=== PATIENT | male | born 1950 | race Hispanic/Latino ===

== ENCOUNTER 2018-02-03 18:14 | Emergency (ER) | payer MEDICARE ==
[~2018-02-03] VITALS: Ht 170.2 cm; Wt 106.8 kg
[~2018-02-03 18:14] MED LIST: ADVIL200 MG PO; AMLODIPINE BESYL5 MG PO; ASPIRIN EC81 MG PO; ATORVASTATIN CA40 MG PO; BENADRYL 50MG C50 MG OR; BENADRYL1 CRE EX; BENADRYL25 M1 OR; ENALAPRIL10 MG OR; GENTAMICIN15 ML/BTL OP; GLIPIZIDE5 M2 OR; GLIPIZIDE5 MG OR; GLIPIZIDE5 MG PO; LISINOPRIL10 MG PO; LISINOPRIL20 M1 PO; LORTAB 7.5 OR; MEDROL4 M1 OR; METFORMIN HCL1000 MG PO; METFORMIN1000 MG PO; METFORMIN500 M1 OR; METFORMIN500 MG PO; MULTIVITAMI9 PO; NO MEDS; PLAVIX75 MG PO; SILVADENE1 %; SILVADENE1 % TOP; ULTRAM50 M1 PO; VITAMIN C1000 MG PO; ZOFRAN ODT8 MG PO
[2018-02-03] MEDS ORDERED: TAMSULOSIN HCL0.4 MG PO (18:22)
[2018-02-03] MEDS ORDERED: ASPIRIN81 MG PO (18:22)
[2018-02-03] MEDS ORDERED: CARVEDILOL25 MG PO (18:23)
[2018-02-03] MEDS ORDERED: ISOSORB MONO30 MG PO (18:24)
[2018-02-03] MEDS ORDERED: HYDRALAZINE50 MG PO (18:24)
[2018-02-03] MEDS ORDERED: GABAPENTIN100 MG PO (18:25)
[2018-02-03] MEDS ORDERED: LOSARTAN POT50 MG PO (18:27)
[2018-02-03] MEDS ORDERED: CILOSTAZOL100 MG PO (18:28)
[2018-02-03] MEDS ORDERED: CLINDAMYCIN HC150 MG PO (18:29)
[2018-02-03 18:56] LABS: HEMATOCRIT 31.5 % (39.0-50.0); HEMOGLOBIN 10.6 g/dl (14.0-18.0); IMMATURE GRANULOCYTES 0.4 % (0.0-5.0); MEAN CELL VOLUME 84.9 fL CALC (80.0-100.0); MEAN CORPUSCULAR HGB 28.6 pG CALC (26.0-32.0); MEAN CORPUSCULAR HGB CONC 33.7 g/L CALC (32.0-36.0); NEUT# 6.12 thou/uL (1.82-7.42); RED BLOOD COUNT 3.71 mill/uL (4.70-6.10); RED CELL DISTRI WIDTH 14.2 % (11.5-15.5)
[2018-02-03 19:14] LABS: ALKALINE PHOSPHATASE 67 u/l (38-126); ANION GAP 14 (6-22 (CALC)); BILIRUBIN, TOTAL 0.4 mg/dL (0.0-1.4); BUN 18 mg/dL (8-23); BUN/CREATININE RATIO 17 (12-20 (CALC)); CARBON DIOXIDE 24 mmol/l (22-30); CHLORIDE 104 mmol/l (95-108); CPK 119 u/l (52-200); CREATININE 1.1 mg/dL (0.7-1.3); GFR > 60 ML/MIN (>=60 (CALC)); GFR FOR AFR.AMER. > 60 ML/MIN (>=60 (CALC)); POTASSIUM 4.5 mmol/l (3.5-5.1); SGOT/AST 25 u/l (19-48); SGPT/ALT 30 u/l (11-66); SODIUM 138 mmol/l (137-146)
[2018-02-03 19:23] LABS: MYOGLOBIN 78 ng/mL (0 - 121)
[2018-02-03] MEDS ORDERED: TORADOL PO (19:38)
[2018-02-03] MEDS ORDERED: BACTRIM DS1 TAB PO (19:38)
[2018-02-03 19:57] VITALS: BP 167/81
== END 2018-02-03 19:58 | disposition home or self-care (01) ==
LOC: ED 18:14
PROVIDERS: Family Medicine
DX: R22.1 Localized swelling, mass and lump, neck (principal); T36.8X5A Adverse effect of other systemic antibiotics, initial encounter; T88.1XXA Other complications following immunization, not elsewhere classified, initial encounter; M79.1 Myalgia; Y92.009 Unspecified place in unspecified non-institutional (private) residence as the place of occurrence of the external cause

== ENCOUNTER → 2018-09-13 | Outpatient (REF) | payer MEDICARE ==
[~2018-09-13] MED LIST changes: +ASPIRIN81 MG PO; +BACTRIM DS1 TAB PO; +CARVEDILOL25 MG PO; +CILOSTAZOL100 MG PO; +CLINDAMYCIN HC150 MG PO; +GABAPENTIN100 MG PO; +HYDRALAZINE50 MG PO; +ISOSORB MONO30 MG PO; +LOSARTAN POT50 MG PO; +TAMSULOSIN HCL0.4 MG PO; +TORADOL PO
== END | disposition home or self-care (01) ==
LOC: MRI 08-31 08:30
PROVIDERS: ATTEND Internal Medicine
DX: M48.061 Spinal stenosis, lumbar region without neurogenic claudication (principal)

== ENCOUNTER 2019-01-22 07:33 | Inpatient (IN) | payer MEDICARE, MEDICAID ==
[~2019-01-22] VITALS: Ht 170.2 cm; Wt 102.2 kg
[2019-01-22] MEDS ORDERED: MAXZIDE-2537.5 MG/TA PO (08:05)
[2019-01-22] MEDS ORDERED: TAMSULOSIN HCL0.4 MG PO (08:06)
[2019-01-22 08:46] LABS: HEMATOCRIT 36.2 % (39.0-50.0); HEMOGLOBIN 12.1 g/dl (14.0-18.0); IMMATURE GRANULOCYTES 0.6 % (0.0-5.0); MEAN CELL VOLUME 85.8 fL CALC (80.0-100.0); MEAN CORPUSCULAR HGB 28.7 pG CALC (26.0-32.0); MEAN CORPUSCULAR HGB CONC 33.4 g/L CALC (32.0-36.0); NEUT# 12.11 thou/uL (1.82-7.42); RED BLOOD COUNT 4.22 mill/uL (4.70-6.10); RED CELL DISTRI WIDTH 13.5 % (11.5-15.5)
[2019-01-22 09:01] LABS: ALKALINE PHOSPHATASE 80 u/l (38-126); ANION GAP 16 (6-22 (CALC)); BUN 17 mg/dL (8-23); BUN/CREATININE RATIO 14 (12-20 (CALC)); CARBON DIOXIDE 25 mmol/l (22-30); CHLORIDE 106 mmol/l (95-108); CREATININE 1.3 mg/dL (0.7-1.3); GFR 55 ML/MIN (>=60 (CALC)); GFR FOR AFR.AMER. > 60 ML/MIN (>=60 (CALC)); LIPASE 134 u/l (23-300); POTASSIUM 4.5 mmol/l (3.5-5.1); SGOT/AST 20 u/l (19-48); SODIUM 142 mmol/l (137-146); TOTAL PROTEIN 7.7 g/dL (6.3-8.2)
[2019-01-22 09:02] LABS: ALBUMIN 4.9 g/dL (3.2-5.0); BILIRUBIN, TOTAL 0.6 mg/dL (0.0-1.4)
[2019-01-22 10:46] LABS: URINE BILIRUBIN - DIPSTICK NEGATIVE (NEGATIVE); URINE BLOOD DIPSTICK NEGATIVE (NEGATIVE); URINE COLOR YELLOW; URINE GLUCOSE - DIPSTICK NEGATIVE (NEGATIVE); URINE KETONE TRACE mg/dL (NEGATIVE); URINE LEUK ESTERASE NEGATIVE (NEGATIVE); URINE NITRITE - DIPSTICK NEGATIVE (Negative); URINE PH 5.5 (4.5-8.0); URINE PROTEIN - DIPSTICK 100 mg/dL (NEG-TRACE); URINE SPECIFIC GRAVITY 1.025; URINE UROBILINOGEN - DIPSTICK 0.2 E.U./dL (0.2)
[2019-01-22 10:50] LABS: URINE RBC 0-2 RBC/hpf (0-5); URINE WBC 0-2 WBC/hpf (0-5)
[2019-01-22 11:47] VITALS: BP 140/59
[2019-01-22 15:52] VITALS: BP 119/66
[2019-01-22 20:22] VITALS: BP 104/57
[2019-01-22 21:55] VITALS: BP 101/54
[2019-01-23 00:54] VITALS: BP 107/52
[2019-01-23 05:04] LABS: IMMATURE GRANULOCYTES 0.4 % (0.0-5.0); MEAN CELL VOLUME 86.7 fL CALC (80.0-100.0); MEAN CORPUSCULAR HGB 28.8 pG CALC (26.0-32.0); MEAN CORPUSCULAR HGB CONC 33.2 g/L CALC (32.0-36.0); NEUT# 10.72 thou/uL (1.82-7.42); RED BLOOD COUNT 3.3 mill/uL (4.70-6.10); RED CELL DISTRI WIDTH 13.6 % (11.5-15.5)
[2019-01-23 05:16] LABS: HEMATOCRIT 28.6 % (39.0-50.0); HEMOGLOBIN 9.5 g/dl (14.0-18.0)
[2019-01-23 05:25] LABS: BILIRUBIN, TOTAL 0.6 mg/dL (0.0-1.4); MAGNESIUM 1.4 mg/dL (1.6-2.3); POTASSIUM 4.6 mmol/l (3.5-5.1)
[2019-01-23 05:35] LABS: ALBUMIN 3.7 g/dL (3.2-5.0); CREATININE 2.9 mg/dL (0.7-1.3)
[2019-01-23 08:16] VITALS: BP 122/68
[2019-01-23 11:05] VITALS: BP 133/65
[2019-01-23 16:55] VITALS: BP 140/65
[2019-01-23 19:34] VITALS: BP 170/68
[2019-01-23 23:10] VITALS: BP 157/75
[2019-01-24] VITALS (7 sets, daily range): BP systolic 140–196; BP diastolic 61–95
[2019-01-24 05:03] LABS: HEMATOCRIT 27.5 % (39.0-50.0); HEMOGLOBIN 9.1 g/dl (14.0-18.0); IMMATURE GRANULOCYTES 0.4 % (0.0-5.0); MEAN CELL VOLUME 86.2 fL CALC (80.0-100.0); MEAN CORPUSCULAR HGB 28.5 pG CALC (26.0-32.0); MEAN CORPUSCULAR HGB CONC 33.1 g/L CALC (32.0-36.0); NEUT# 6.16 thou/uL (1.82-7.42); RED BLOOD COUNT 3.19 mill/uL (4.70-6.10); RED CELL DISTRI WIDTH 13.5 % (11.5-15.5)
[2019-01-24 05:28] LABS: ALBUMIN 3.4 g/dL (3.2-5.0); BILIRUBIN, TOTAL 0.4 mg/dL (0.0-1.4); CREATININE 2.8 mg/dL (0.7-1.3); MAGNESIUM 1.6 mg/dL (1.6-2.3); POTASSIUM 4.4 mmol/l (3.5-5.1); TOTAL PROTEIN 5.8 g/dL (6.3-8.2)
[2019-01-25] VITALS (13 sets, daily range): BP systolic 150–199; BP diastolic 74–92
[2019-01-25 03:45] LABS: HEMOGLOBIN 9.2 g/dl (14.0-18.0); IMMATURE GRANULOCYTES 0.6 % (0.0-5.0); MEAN CELL VOLUME 86.4 fL CALC (80.0-100.0); MEAN CORPUSCULAR HGB 28.4 pG CALC (26.0-32.0); MEAN CORPUSCULAR HGB CONC 32.9 g/L CALC (32.0-36.0); NEUT# 4.62 thou/uL (1.82-7.42); RED BLOOD COUNT 3.24 mill/uL (4.70-6.10); RED CELL DISTRI WIDTH 13.5 % (11.5-15.5)
[2019-01-25 04:05] LABS: ALBUMIN 3.4 g/dL (3.2-5.0); BILIRUBIN, TOTAL 0.3 mg/dL (0.0-1.4); CREATININE 2.1 mg/dL (0.7-1.3); MAGNESIUM 1.6 mg/dL (1.6-2.3); POTASSIUM 4.1 mmol/l (3.5-5.1); TOTAL PROTEIN 5.9 g/dL (6.3-8.2)
[2019-01-25 04:10] LABS: ALBUMIN 3.5 g/dL (3.2-5.0); CREATININE 2.1 mg/dL (0.7-1.3); POTASSIUM 4.2 mmol/l (3.5-5.1)
[2019-01-26] VITALS (8 sets, daily range): BP systolic 134–174; BP diastolic 66–82
[2019-01-26 05:25] LABS: HEMATOCRIT 30.4 % (39.0-50.0); HEMOGLOBIN 9.9 g/dl (14.0-18.0); IMMATURE GRANULOCYTES 0.4 % (0.0-5.0); MEAN CELL VOLUME 87.1 fL CALC (80.0-100.0); MEAN CORPUSCULAR HGB 28.4 pG CALC (26.0-32.0); MEAN CORPUSCULAR HGB CONC 32.6 g/L CALC (32.0-36.0); NEUT# 4.83 thou/uL (1.82-7.42); RED BLOOD COUNT 3.49 mill/uL (4.70-6.10); RED CELL DISTRI WIDTH 13.6 % (11.5-15.5)
[2019-01-26 05:48] LABS: ALBUMIN 3.7 g/dL (3.2-5.0); BILIRUBIN, TOTAL 0.4 mg/dL (0.0-1.4); CREATININE 1.9 mg/dL (0.7-1.3); MAGNESIUM 1.6 mg/dL (1.6-2.3); POTASSIUM 4.5 mmol/l (3.5-5.1); TOTAL PROTEIN 6.4 g/dL (6.3-8.2)
[2019-01-26 09:17] LABS: CHOLESTEROL HDL RATIO 4.9 (<4.4 (CALC))
[2019-01-27 00:02] VITALS: BP 162/72
[2019-01-27 04:23] VITALS: BP 158/80
[2019-01-27 05:01] LABS: HEMATOCRIT 26.5 % (39.0-50.0); HEMOGLOBIN 8.7 g/dl (14.0-18.0); IMMATURE GRANULOCYTES 0.5 % (0.0-5.0); MEAN CELL VOLUME 87.2 fL CALC (80.0-100.0); MEAN CORPUSCULAR HGB 28.6 pG CALC (26.0-32.0); MEAN CORPUSCULAR HGB CONC 32.8 g/L CALC (32.0-36.0); NEUT# 3.51 thou/uL (1.82-7.42); RED BLOOD COUNT 3.04 mill/uL (4.70-6.10); RED CELL DISTRI WIDTH 13.5 % (11.5-15.5)
[2019-01-27 05:12] LABS: CREATININE 1.6 mg/dL (0.7-1.3); MAGNESIUM 1.6 mg/dL (1.6-2.3); POTASSIUM 4.2 mmol/l (3.5-5.1)
[2019-01-27 08:00] VITALS: BP 140/80
[2019-01-27 10:40] VITALS: BP 158/83
[2019-01-27] MEDS ORDERED: AMLODIPINE BESYL5 MG PO (11:58)
== END 2019-01-27 14:05 | disposition home or self-care (01) | DRG 418 ==
LOC: ED 07:33 → ED-I 09:44 → ED 10:24 → MS2 10:25
PROVIDERS: Family Medicine; Internal Medicine Nephrology; Nurse Practitioner Family; ADMIT Internal Medicine Nephrology; ATTEND Internal Medicine Nephrology
PROC: 3E0234Z Introduction of Serum, Toxoid and Vaccine into Muscle, Percutaneous Approach (ICD-10-PCS; 2019-01-24)
PROC: 0FT44ZZ Resection of Gallbladder, Percutaneous Endoscopic Approach (ICD-10-PCS; principal; 2019-01-25)
DX: K80.00 Calculus of gallbladder with acute cholecystitis without obstruction (principal); N17.9 Acute kidney failure, unspecified; E87.1 Hypo-osmolality and hyponatremia; I25.10 Atherosclerotic heart disease of native coronary artery without angina pectoris; E78.5 Hyperlipidemia, unspecified; E11.22 Type 2 diabetes mellitus with diabetic chronic kidney disease; I12.9 Hypertensive chronic kidney disease with stage 1 through stage 4 chronic kidney disease, or unspecified chronic kidney disease; N18.3 Chronic kidney disease, stage 3 (moderate); E11.40 Type 2 diabetes mellitus with diabetic neuropathy, unspecified; E86.9 Volume depletion, unspecified; D64.9 Anemia, unspecified; E83.42 Hypomagnesemia; N40.1 Benign prostatic hyperplasia with lower urinary tract symptoms; R33.8 Other retention of urine; M48.061 Spinal stenosis, lumbar region without neurogenic claudication; Z86.73 Personal history of transient ischemic attack (TIA), and cerebral infarction without residual deficits; Z79.84 Long term (current) use of oral hypoglycemic drugs; Z23 Encounter for immunization; Z79.02 Long term (current) use of antithrombotics/antiplatelets; Z95.5 Presence of coronary angioplasty implant and graft; Z95.1 Presence of aortocoronary bypass graft; Z87.891 Personal history of nicotine dependence
CPT/HCPCS: J0131; J2710

== ENCOUNTER 2019-03-21 07:04 | Day surgery (SDC) | payer MEDICARE, MEDICAID ==
[~2019-03-21] VITALS: Ht 170.2 cm; Wt 104.3 kg
[~2019-03-21 07:04] MED LIST changes: +ASPIRIN/ENTERIC81 MG PO; -ASPIRIN81 MG PO; +B COMPLE2 PO; +CLOPIDOGREL75 MG PO; -GABAPENTIN100 MG PO; +GABAPENTIN300 M2 PO; +HUMALOG100 UNIT/M SC; +LANTUS100 UNIT/M SC; +LOSARTAN POTASS50 MG PO; +MAXZIDE-2537.5 MG/TA PO; +MUPIROCIN EX; +NITROGLYCER0.2 MG/H1 TD; +NITROGLYCERIN0.4 MG SL; +PROSCAR5 MG PO; +VITAMIN B-121000 MCG PO; +ZESTRIL10 M1 PO
[2019-03-21 09:23] VITALS: BP 109/63
== END 2019-03-21 09:40 | disposition home or self-care (01) ==
LOC: ENDO 07:04 → ORM 08:45 → ENDO 09:40
PROVIDERS: ATTEND Surgery
PROC: 0DB98ZX Excision of Duodenum, Via Natural or Artificial Opening Endoscopic, Diagnostic (ICD-10-PCS; principal; 2019-03-21)
PROC: 0DB68ZX Excision of Stomach, Via Natural or Artificial Opening Endoscopic, Diagnostic (ICD-10-PCS; 2019-03-21)
PROC: 0DB48ZX Excision of Esophagogastric Junction, Via Natural or Artificial Opening Endoscopic, Diagnostic (ICD-10-PCS; 2019-03-21)
PROC: 0DJD8ZZ Inspection of Lower Intestinal Tract, Via Natural or Artificial Opening Endoscopic (ICD-10-PCS; 2019-03-21)
DX: D64.9 Anemia, unspecified (principal); K29.80 Duodenitis without bleeding; K29.60 Other gastritis without bleeding; K44.9 Diaphragmatic hernia without obstruction or gangrene; K21.0 Gastro-esophageal reflux disease with esophagitis; K64.8 Other hemorrhoids; I10 Essential (primary) hypertension; E11.9 Type 2 diabetes mellitus without complications

== ENCOUNTER 2019-05-03 01:58 | Emergency (ER) | payer MEDICARE, MEDICAID ==
[~2019-05-03] VITALS: Ht 170.2 cm; Wt 104.5 kg
[2019-05-03] MEDS ORDERED: PERCOCET 5/325M1 TAB PO (04:30)
[2019-05-03] MEDS ORDERED: ORPHENADRINE C100 M1 PO (04:30)
[2019-05-03 04:40] VITALS: BP 172/72
== END 2019-05-03 04:40 | disposition home or self-care (01) ==
LOC: ED 01:58
DX: S76.911A Strain of unspecified muscles, fascia and tendons at thigh level, right thigh, initial encounter (principal); E11.9 Type 2 diabetes mellitus without complications; Z79.4 Long term (current) use of insulin; X58.XXXA Exposure to other specified factors, initial encounter; Z98.890 Other specified postprocedural states; M79.651 Pain in right thigh

== ENCOUNTER 2019-05-10 08:56 | Emergency (ER) | payer MEDICARE, MEDICAID ==
[~2019-05-10] VITALS: Ht 170.2 cm; Wt 110.0 kg
[~2019-05-10 08:56] MED LIST changes: +ORPHENADRINE C100 M1 PO; +PERCOCET 5/325M1 TAB PO
[2019-05-10 10:57] LABS: HEMATOCRIT 30.5 % (39.0-50.0); HEMOGLOBIN 10.1 g/dl (14.0-18.0); IMMATURE GRANULOCYTES 0.5 % (0.0-5.0); MEAN CELL VOLUME 86.4 fL CALC (80.0-100.0); MEAN CORPUSCULAR HGB 28.6 pG CALC (26.0-32.0); MEAN CORPUSCULAR HGB CONC 33.1 g/L CALC (32.0-36.0); NEUT# 5.57 thou/uL (1.82-7.42); RED BLOOD COUNT 3.53 mill/uL (4.70-6.10); RED CELL DISTRI WIDTH 14.1 % (11.5-15.5)
[2019-05-10 11:27] LABS: ALBUMIN 4.1 g/dL (3.2-5.0); BUN 15 mg/dL (8-23); BUN/CREATININE RATIO 11 (12-20 (CALC)); CARBON DIOXIDE 25 mmol/l (22-30); CHLORIDE 101 mmol/l (95-108); CREATININE 1.4 mg/dL (0.7-1.3); GFR 51 ML/MIN (>=60 (CALC)); GFR FOR AFR.AMER. > 60 ML/MIN (>=60 (CALC)); SGOT/AST 30 u/l (19-48); SODIUM 136 mmol/l (137-146)
[2019-05-10 11:32] LABS: ALKALINE PHOSPHATASE 116 u/l (38-126); ANION GAP 15 (6-22 (CALC)); BILIRUBIN, TOTAL 0.9 mg/dL (0.0-1.4); POTASSIUM 5.2 mmol/l (3.5-5.1)
[2019-05-10] MEDS ORDERED: LOPID600 MG PO (12:05)
[2019-05-10 13:44] LABS: URINE BILIRUBIN - DIPSTICK NEGATIVE (NEGATIVE); URINE BLOOD DIPSTICK TRACE-INTACT (NEGATIVE); URINE COLOR YELLOW; URINE GLUCOSE - DIPSTICK NEGATIVE (NEGATIVE); URINE KETONE NEGATIVE (NEGATIVE); URINE LEUK ESTERASE NEGATIVE (NEGATIVE); URINE NITRITE - DIPSTICK NEGATIVE (Negative); URINE PROTEIN - DIPSTICK 100 mg/dL (NEG-TRACE); URINE UROBILINOGEN - DIPSTICK 0.2 E.U./dL (0.2)
[2019-05-10 13:50] LABS: URINE RBC 0-2 RBC/hpf (0-5); URINE WBC 0-2 WBC/hpf (0-5)
[2019-05-10] MEDS ORDERED: PYRIDIUM200 MG PO (14:13)
[2019-05-10 14:30] VITALS: BP 145/72
== END 2019-05-10 14:39 | disposition home or self-care (01) ==
LOC: ED 08:56
PROVIDERS: Family Medicine
DX: R30.0 Dysuria (principal); E11.9 Type 2 diabetes mellitus without complications; Z79.4 Long term (current) use of insulin

== ENCOUNTER 2020-01-24 19:48 | Emergency (ER) | payer MEDICARE, MEDICAID ==
[~2020-01-24] VITALS: Ht 170.2 cm; Wt 107.0 kg
[~2020-01-24 19:48] MED LIST changes: +LOPID600 MG PO; +PYRIDIUM200 MG PO
[2020-01-24 22:37] VITALS: BP 180/88
--- NOTE | 2020-01-27 14:51 | NUR ---
Notified patients of patients positive Covid results. states patient very weak, "unable to keep anything down", unable to come to phone and has a fever. Advised to have patient return to the ED for further evaluation. Asked that patient wear a mask upon entry of building. states she will have daughter bring patient to ED [facility]. ED staff notified.
== END 2020-01-24 22:37 | disposition home or self-care (01) ==
LOC: ED 19:48
DX: U07.1 COVID-19 (principal); J06.9 Acute upper respiratory infection, unspecified; I10 Essential (primary) hypertension; E11.9 Type 2 diabetes mellitus without complications; Z79.4 Long term (current) use of insulin

== ENCOUNTER 2020-01-27 16:19 | Inpatient (IN) | payer MEDICARE, MEDICAID ==
[~2020-01-27] VITALS: Ht 170.2 cm; Wt 99.8 kg
--- NOTE | 2020-01-27 16:35 | NUR ---
Pt to room # 16 via W/C for bedside triage
--- NOTE | 2020-01-27 17:00 | NUR ---
PT IS COVID 19 POSITIVE AND STATES HAVING NO PAIN AT THIS TIME BUT HAS AN INTERM PROD COUGH AND HAS BODY ACHES, DECREASE IN APPETITE, INCREASED WEAKNESS. LUNGS DIMINISHED LOWER LOBES. TEMP 99.8 F. WILL CONTINUE TO MONITOR.
--- NOTE | 2020-01-27 17:30 | NUR ---
TREATMENTS COMPLETED. PT NOTIFIED OF WAIT AND PLAN OF CARE. CALL LIGHT WITHIN REACH
[2020-01-27 17:48] LABS: HEMATOCRIT 31.8 % (39.0-50.0); HEMOGLOBIN 10.9 g/dl (14.0-18.0); IMMATURE GRANULOCYTES 0.5 % (0.0-5.0); MEAN CELL VOLUME 87.6 fL CALC (80.0-100.0); MEAN CORPUSCULAR HGB CONC 34.3 g/dL CAL (32.0-36.0); NEUT# 3.14 thou/uL (1.82-7.42); RED BLOOD COUNT 3.63 mill/uL (4.70-6.10)
[2020-01-27 18:09] LABS: ALBUMIN 4.1 g/dL (3.2-5.0); C-REACTIVE PROTEIN 5.8 mg/dL (0-0.9); CREATININE 1.8 mg/dL (0.7-1.3); D-DIMER 0.34 mg/L (0.19-0.60); TOTAL PROTEIN 6.7 g/dL (6.3-8.2)
[2020-01-27 18:10] LABS: BILIRUBIN, TOTAL 0.5 mg/dL (0.0-1.4); POTASSIUM 4.1 mmol/l (3.5-5.1)
[2020-01-27 18:13] LABS: PROTHROMBIN TIME 9.7 SECONDS (9.0-12.5)
--- NOTE | 2020-01-27 18:30 | NUR ---
FLUIDS AND ANTIBIOTICS FLOWING IN PATENT IV. PT DENIES ANY PAINS. CALL LIGHT WITHIN REACH
[2020-01-27] MEDS ORDERED: [UNRECOGNIZED DRUG - OTHER] (19:41)
[2020-01-27] MEDS ORDERED: TAMSULOSIN HCL0.4 MG PO (19:41)
--- NOTE | 2020-01-27 19:45 | NUR ---
PT NOTIFIED OF PENDING ADMISSION AND WAIT TIME. CALL LIGHT WITHIN REACH
--- NOTE | 2020-01-27 20:20 | NUR ---
GAVE REPORT TO BEENA
--- NOTE | 2020-01-27 20:30 | NUR ---
PT TRANSPORTED TO ICU STABLE AND IN NO DISTRESS BY STRETCHER. PT CARE ASSUMED TO BEENA Admission Note Report Given to: Transported by: Wheelchair X Stretcher Transported with: X Nurse Transporter X Patent IV O2 X Education Intern Location: X ICU MS2
--- NOTE | 2020-01-27 20:45 | NUR ---
69 yr old male admitted to icu5 per stretcher from er. transferred self to bed. bed weight obtained. no resp diff. air sampling and monitoring shows sinus rhythm hr 86. #20 lac. ns bolus conts. history obtained per pt & er record. fall & air/contact precautions initiated.
--- NOTE | 2020-01-27 20:45 | NUR ---
pt said he & his were tested @ the [facility] 2 days ago. air scrubber in room.
[2020-01-27 22:00] VITALS: BP 168/58
--- NOTE | 2020-01-27 22:00 | NUR ---
watching tv. no c/o voiced. no distress.
[2020-01-27 22:15] VITALS: BP 189/79
[2020-01-27 22:30] VITALS: BP 192/79
[2020-01-28] VITALS (10 sets, daily range): BP systolic 114–170; BP diastolic 64–94
--- NOTE | 2020-01-28 00:01 | NUR ---
eyes closed. no distress. equipment monitor phototypesetting shows sinus rhythm hr 80.
--- NOTE | 2020-01-28 02:00 | NUR ---
resting quietly. resps even & unlabored. nad.
--- NOTE | 2020-01-28 03:30 | NUR ---
blood drawn & sent to lab.
[2020-01-28 04:17] LABS: HEMATOCRIT 28.8 % (39.0-50.0); HEMOGLOBIN 9.8 g/dl (14.0-18.0); IMMATURE GRANULOCYTES 0.3 % (0.0-5.0); MEAN CELL VOLUME 87.3 fL CALC (80.0-100.0); MEAN CORPUSCULAR HGB 29.7 pG CALC (26.0-32.0); NEUT# 3.03 thou/uL (1.82-7.42); RED BLOOD COUNT 3.3 mill/uL (4.70-6.10); RED CELL DISTRI WIDTH 12.9 % (11.5-15.5)
[2020-01-28 04:38] LABS: BILIRUBIN, TOTAL 0.3 mg/dL (0.0-1.4); C-REACTIVE PROTEIN 5.7 mg/dL (0-0.9); CREATININE 1.5 mg/dL (0.7-1.3); POTASSIUM 4.1 mmol/l (3.5-5.1); TOTAL PROTEIN 5.6 g/dL (6.3-8.2)
[2020-01-28 04:43] LABS: ALBUMIN 3.2 g/dL (3.2-5.0)
[2020-01-28 05:35] LABS: URINE BILIRUBIN - DIPSTICK NEGATIVE (NEGATIVE); URINE BLOOD DIPSTICK MODERATE (NEGATIVE); URINE CLARITY CLEAR; URINE COLOR YELLOW; URINE GLUCOSE - DIPSTICK 250 mg/dL (NEGATIVE); URINE KETONE NEGATIVE (NEGATIVE); URINE NITRITE - DIPSTICK NEGATIVE (Negative); URINE PROTEIN - DIPSTICK >=300 mg/dL (NEG-TRACE); URINE UROBILINOGEN - DIPSTICK 0.2 E.U./dL (0.2)
[2020-01-28 05:49] LABS: URINE LEUK ESTERASE NEGATIVE (Negative)
[2020-01-28 05:50] LABS: URINE BACTERIA FEW hpf; URINE EPITHELIAL CELLS FEW EPI/hpf (0-FEW)
--- NOTE | 2020-01-28 07:00 | NUR ---
REPORT RECEIVED FROM ZIYAD HARGROVE. PT RESTING IN BED SUPINE WITH EYES CLOSED AND NO SIGNS OF DISTRESS. RESPIRATIONS EVEN AND UNLABORED ON ROOM AIR. AWAKENS SPONTANEOUSLY. ALERT AND ORIENTED. DENIES PAIN. VSS. IV SITE APPEARS HEALTHY AND FLUSHES. REMAINS ON AIRBORNE/CONTACT PRECAUTIONS FOR POSITIVE COVID RESULTS. PLAN OF CARE REVIEWED. PT ENCOURAGED TO VERBALIZE CONCERNS. STATES UNDERSTANDING. SAFETY MEASURES IN PLACE. CALL LIGHT WITHIN REACH.
--- NOTE | 2020-01-28 08:30 | NUR ---
PT DISCONNECTED FROM ATTACHMENTS AFTER BREAKFAST TEMPORARILY FOR AMBULATION AND CARE; PT PERFORMED ORAL CARE AND HYGIENE INDEPENDENTLY.
--- NOTE | 2020-01-28 12:00 | NUR ---
PT RESTING IN BED SEMI FOWLERS; ALERT AND ORIENTED. NO CHANGES REPORTED. SR ON CARDIAC MONTIOR WITH PACS; HR IN THE 70'S. IV SITE APPEARS HEALTHY AND FLUSHES. NO REQUESTS OR CONCERNS AT THIS TIME.
--- NOTE | 2020-01-28 16:00 | NUR ---
PT C/O SOME BURNING DURING URINATION; DISCUSSED RESULTS OF UA WHICH DOES NOT REPORT UTI. PT IS SEEING DR. GARCIA; HAS SCHEDULED APPOINTMENT TOMORROW AT 1045; OFFICE NOTIFIED THAT HE IS HOSPITALIZED AT THIS TIME. VOIDING CLEAR YELLOW URINE IN ADEQUATE AMOUNTS. WILL CONTINUE TO MONITOR.
--- NOTE | 2020-01-28 19:45 | NUR ---
awake. denies resp distress. quality assurance monitor final shows sinus rhythm pacs ivcd hr 74. #20 lac saline lock. po fluids taken well. voids per urinal. spoke to pt about prone position but refuses @ present. fall & air/contact precautions cont.
--- NOTE | 2020-01-28 22:00 | NUR ---
eyes closed. no distress. ekg monitor tech shows sinus rhythm hr 78.
[2020-01-29 00:01] VITALS: BP 145/57
--- NOTE | 2020-01-29 00:01 | NUR ---
eyes closed. no resp diff. manager monitoring shows sinus rhythm pacs ivcd hr 72.
[2020-01-29 02:00] VITALS: BP 133/37
--- NOTE | 2020-01-29 02:00 | NUR ---
resting quietly. resps even & unlabored. no apparent distress.
--- NOTE | 2020-01-29 04:00 | NUR ---
eyes closed. no resp diff. conveyor monitor shows sinus rhythm pacs ivcd hr 75.
[2020-01-29 08:00] VITALS: BP 163/71
--- NOTE | 2020-01-29 08:00 | NUR ---
BREAKFAST TRAY DELIVERED TO PT. PT REQUEST TO BE UNHOOKED SO HE CAN "WASH HIS FACE & PUT WATER IN HIS MOUTH".
--- NOTE | 2020-01-29 08:08 | NUR ---
DR MORILLO @BEDSIDE, ASSSESSING PT, DISCUSSING TEST RESULTS & POC.
--- NOTE | 2020-01-29 09:09 | NUR ---
PT C/O EMESIS W/BREAKFAST. PT STATES HE "CANT EAT OUR TRINIDADIAN FOOD, HIS STOMACH ISNT USED TO IT"
--- NOTE | 2020-01-29 09:19 | NUR ---
PT REQUEST CHICKEN SOUP FOR LUNCH. DEITARY AWARE.
--- NOTE | 2020-01-29 11:20 | NUR ---
LUNCH TRAY PLACED ON PTS BEDSIDE TABLE. PT REQUEST NEW PITCHER OF ICE WATER. DISCUSSED HAVING A BM.
--- NOTE | 2020-01-29 12:36 | NUR ---
DR STEWART @BEDSIDE FOR CONSULT
--- NOTE | 2020-01-29 13:04 | NUR ---
PT C/O NAUSEA. MD NOTIFIED. RBVTO FOR ZOFRAN; ORDER FAXED TO PHARMACY.
[2020-01-29 16:00] VITALS: BP 153/70
--- NOTE | 2020-01-29 16:07 | NUR ---
PT DENIES N/V. STATES HE IS FEELING BETTER. BREATHING EVEN/UNLABORED. PT LOZADA; WALKS AROUND ROOM. NO S/S OF DISTRES.
--- NOTE | 2020-01-29 17:47 | NUR ---
PT SITTING ON SIDE OF BED, WITH DINNER TRAY. NO COMPLAINTS/NEEDS AT THIS TIME. WILL CONTINUE TO MONITOR.
[2020-01-29 21:27] VITALS: BP 154/75
--- NOTE | 2020-01-29 22:15 | NUR ---
PT IN BED WITH EYES OPEN AND ABLE TO VERBALIZE NEEDS. ALERT AND ORIENTED AND ABLE TO MAKE NEEDS KNOWN. MEDICATIONS GIVEN AND TOLERATED WELL. PT WAS MEDICATED FOR NAUSEA WITH ZOFRAN AND WAS EFFECTIVE. BLOOD SUGAR AT HS 365 AND INSULIN GIVEN PRESCRIBED. BEDTIME SNACK WAS GIVEN TO PT. CONTINUES ON lEVOFLOXACIN ABT IV WITH NO ADVERSE SIDE EFFECTS. CALL LIGHT IS WITHIN REACH. WILL CONTINUE TO OBSERVE.
--- NOTE | 2020-01-30 00:45 | NUR ---
PT IN BED WITH EYES CLOSED AND EASILY AROUSED. NO S/S OF DISTRESS NOTED. RESPIRATION EVEN AND NON LABORED. VITALS STABLE. CALL LIGHT IS WITHIN REACH AND BED IN LOWEST POSITION. WILL CONTINUE TO OBSERVE. .
--- NOTE | 2020-01-30 03:43 | NUR ---
PT IN BED WITH EYES CLOSED. NO S/S OF DISTRESS. EASILY AROUSED. RESPIRATON ARE EVEN AND NON LABORED. CALL LIGHT WITHIN REACH AND BED IN LOWEST POSITION. WILL CONTINUE TO OBSERVE.
[2020-01-30 04:48] VITALS: BP 151/71
[2020-01-30 04:59] LABS: BASO% 0 % (0-3); EOS% 0 % (0-8); HEMATOCRIT 28.4 % (39.0-50.0); HEMOGLOBIN 9.7 g/dl (14.0-18.0); IMMATURE GRANULOCYTES 0.6 % (0.0-5.0); LYMPH% 7 % (15-41); MEAN CELL VOLUME 85.8 fL CALC (80.0-100.0); MEAN CORPUSCULAR HGB 29.3 pG CALC (26.0-32.0); MEAN CORPUSCULAR HGB CONC 34.2 g/dL CAL (32.0-36.0); MONO% 5 % (2-13); NEUT% 87 % (42-76); RED BLOOD COUNT 3.31 mill/uL (4.70-6.10); RED CELL DISTRI WIDTH 12.7 % (11.5-15.5)
[2020-01-30 05:04] LABS: PLATELET COUNT 139 thou/uL (130-400)
[2020-01-30 05:36] LABS: ALBUMIN 3.3 g/dL (3.2-5.0); BILIRUBIN, TOTAL 0.4 mg/dL (0.0-1.4); C-REACTIVE PROTEIN 4.6 mg/dL (0-0.9); CREATININE 1.6 mg/dL (0.7-1.3); POTASSIUM 4.3 mmol/l (3.5-5.1); TOTAL PROTEIN 5.6 g/dL (6.3-8.2)
--- NOTE | 2020-01-30 06:08 | NUR ---
PT IN BED WITH EYES OPEN AND ABLE TO VERBALIZE NEEDS. STATES HE FEELS SO MUCH BETTER AFTER HE HAS RECEIVED THE ZOFRAN. CONTINUES ON ABT IV THERAPY WITH NO ADVERSE SIDE EFFECTS. AFEBRILE. 20G TO LAC INTACT AND APPEARS TO BE A HEALTHY SITE. CONTINENT OF B/B AND USES URINAL. WILL CONTINUE TO OBSERVE. CALL LIGHT IS WITHIN REACH AND BED IN LOWEST POSITION.
[2020-01-30 08:08] VITALS: BP 121/75
[2020-01-30 08:31] VITALS: BP 161/81
--- NOTE | 2020-01-30 08:31 | NUR ---
PT SITTING IN BED. A&O X3. NO DISTRESS NOTED. PT REPORTS TO BE FEELING NAUSEOUS THIS MORNING. NO OTHER NEEDS AT THIS TIME. ASSESSMENT COMPLETED. DISCUSSED POC. CALL LIGHT IN REACH. CONTINUE TO MONITOR.
--- NOTE | 2020-01-30 12:55 | NUR ---
PT SITTING IN BED. NO DISTRESS NOTED. CALL LIGHT IN REACH. CONTINUE TO MONITOR.
--- NOTE | 2020-01-30 15:26 | NUR ---
PROCRIT CONSULT PATIENT IS CURRENTLY ON BAG 07/21 OF VENOFER 200MG IV MONITOR HGB FOR IMPROVEMENT WE WILL GIVE 1 DOSE OF RETACRIT 4000 UNITS TODAY AND RECHECK HGB AFTER FINAL VENOFER. JOÃO CARLISLE PHARMD
[2020-01-30 15:30] VITALS: BP 133/72
--- NOTE | 2020-01-30 17:40 | NUR ---
PT SITTING IN BED. NO DISTRESS OR NEEDS AT THIS TIME. CALL LIGHT IN REACH. CONTINUE TO MONITOR.
--- NOTE | 2020-01-30 20:50 | NUR ---
PT IS ALERT AND ORIENTED X4. ON RA, SATS 95%, NO SOB NOTED, DOES HAVE A PRODUCTIVE COUGH. BP 140'S SYSTOLIC. LAC 20 G IV INTACT, IV ANTIBIOTIC NOW INFUSING. POC FOR TONIGHT DISCUSSED, PATIENT UNDERSTANDS AND AGREES. PT REQUESTS ICED WATER, PROVIDED. REQUESTS RECLINER FOR HIM TO SIT IN THE MORNING, PROVIDED. DENIES PAIN. REPSOTIONS SELF, USES URINAL AT BEDSIDE. CALL LIGHT WITHIN REACH. PT WAS ABLE TO SAFELY SWALLOW HIS BEDTIME MEDS.
[2020-01-30 21:00] VITALS: BP 141/70
--- NOTE | 2020-01-30 22:30 | NUR ---
PATIENT'S IV ANTIBIOTIC SONE INFUSING, IV FLUSHED AND WORKS PROPERLY, SALINE LOCKED NOW. PT OFFERED SNACK/DRINK, PT REQUESTS DIET GINI SATINDER, PROVIDED. NO ACUTE DISTRES SSHOWN. CALL LIGHT WITHIN REACH.
[2020-01-31] VITALS (8 sets, daily range): BP systolic 131–174; BP diastolic 59–80
[2020-01-31 06:04] LABS: ALBUMIN 3.1 g/dL (3.2-5.0); CREATININE 1.6 mg/dL (0.7-1.3); POTASSIUM 3.7 mmol/l (3.5-5.1)
--- NOTE | 2020-01-31 06:15 | NUR ---
ICE WATER PROVIDED PER REQUEST. NO ACUTE DISTRESS SHOWN. CLAL LIGHT WITHIN REACH.
--- NOTE | 2020-01-31 06:40 | NUR ---
RECVD REPORT FROM LEN WHEELER @START OF SHIFT.
--- NOTE | 2020-01-31 08:10 | NUR ---
PT C/O NAUSEA, ATE MINIMAL BREAKFAST. MEDICATED FOR NAUSEA. DENIES PAIN. DENIES SOB. NO OTHER NEEDS/CONCERNS AT THIS TIME.
--- NOTE | 2020-01-31 08:58 | NUR ---
PT C/O OUR FOOD MAKING HIM NAUSEOUS. PT REQUEST FRUIT SALAD FOR LUNCH. CAFE AWARE. PT REQUEST PEACHES & ORANGE JUICE FOR BREAKFAST. BREATHING EVEN/UNLABORED, UPPER LUNGS CLEAR, MID/LOWER LUNGS DIMINISHED.
--- NOTE | 2020-01-31 09:54 | NUR ---
PT ASSISTED UP TO TOILET FOR SMALL FORMED BROWN BM. PT C/O DIZZINESS, PLACED ON MONITORS. HR 61, O2 92% BP 138/59. PT PLACED ON 2L NC PRECAUTIONARY. PT REQUEST TO BE IN RECLINER. WANTS TO GO TO [facility] FOR SHOWER. CALLBELL W/IN REACH. WILL CONTINUE TO MONITOR.
--- NOTE | 2020-01-31 10:16 | NUR ---
PT STATES HE FEELS LIKE HE NEEDS TO MAKE MORE "POOP", REQUEST MEDICATION.
--- NOTE | 2020-01-31 11:16 | NUR ---
PT ESCORTED BACK TO BED AFTER A MODEARTE FORMED BROWN . PT STATES HIS BELLY WAS "BUBBLING". PT STATES DIZZINESS IS LESS NOW.
--- NOTE | 2020-01-31 12:15 | NUR ---
PT LAYING IN BED, EATING FRUIT FOR LUNCH. DENIES NAUSEA. PT REMAINS ON MONITORS FOR MILD DIZZINESS. VSS.
--- NOTE | 2020-01-31 15:38 | NUR ---
PT SLEEPING IN BED, BASEBALL ON TV. NO S/S OF DISTRESS. WILL CONTINUE TO MONITOR. CALLBELL W/IN REACH.
--- NOTE | 2020-01-31 17:22 | NUR ---
PT LAYING IN BED, WATCHING BASEBALL ON TV. NO S/S OF DISTRESS. WILL CONTINUE TO MONITOR.
--- NOTE | 2020-01-31 19:20 | NUR ---
awakens easily. denies resp diff. admits to "don't like the food." encouraged pt to be in prone position & out of bed frequently. pt verbalizes understanding. fall & air/contact precautions cont.
[2020-02-01] VITALS (7 sets, daily range): BP systolic 114–153; BP diastolic 58–74
--- NOTE | 2020-02-01 00:01 | NUR ---
eyes closed. is NOT in prone position. no resp distress.
--- NOTE | 2020-02-01 04:00 | NUR ---
eyes closed. lying on rt side. NOT in prone position. no apparent distress.
--- NOTE | 2020-02-01 04:30 | NUR ---
blood drawn & sent to lab.
[2020-02-01 05:20] LABS: BASO% 0 % (0-3); EOS% 0 % (0-8); HEMATOCRIT 30.4 % (39.0-50.0); HEMOGLOBIN 10.3 g/dl (14.0-18.0); LYMPH% 5 % (15-41); MEAN CELL VOLUME 86.4 fL CALC (80.0-100.0); MEAN CORPUSCULAR HGB 29.3 pG CALC (26.0-32.0); MEAN CORPUSCULAR HGB CONC 33.9 g/dL CAL (32.0-36.0); MONO% 4 % (2-13); NEUT# 9.77 thou/uL (1.82-7.42); NEUT% 90 % (42-76); RED BLOOD COUNT 3.52 mill/uL (4.70-6.10); RED CELL DISTRI WIDTH 13.2 % (11.5-15.5)
[2020-02-01 05:24] LABS: PLATELET COUNT 223 thou/uL (130-400)
[2020-02-01 05:44] LABS: BILIRUBIN, TOTAL 0.4 mg/dL (0.0-1.4); CREATININE 1.8 mg/dL (0.7-1.3); TOTAL PROTEIN 5.8 g/dL (6.3-8.2)
--- NOTE | 2020-02-01 05:53 | NUR ---
eyes closed. lying on rt side.
--- NOTE | 2020-02-01 06:45 | NUR ---
RECIEVED REPORT FROM ZIYAD HARGROVE. ASSUMED PT CARE.
--- NOTE | 2020-02-01 10:00 | NUR ---
DR. TOLBERT AT BEDSIDE FOR ASSESSMENT AND TO DISCUSS PLAN OF CARE.
--- NOTE | 2020-02-01 11:05 | NUR ---
PT TRANSFERRED TO [place] ROOM 290 IMMEDIATELY WENT IN TO THE SHOWER.
--- NOTE | 2020-02-01 16:45 | NUR ---
PT IS RELAXING IN BED , NO DISTRESS NOTED. INFORMED PT OF THE FAMILY TRYING TO REACH HIM. HE STATED" I WAS ASLEEP" CONTINUE TO OBSERVE AND MONITOR.
[2020-02-02 04:00] VITALS: BP 159/73
[2020-02-02 04:53] LABS: ALBUMIN 2.7 g/dL (3.2-5.0); CREATININE 2.2 mg/dL (0.7-1.3)
[2020-02-02 08:30] VITALS: BP 142/71
--- NOTE | 2020-02-02 08:30 | NUR ---
ASSESSMENT IS COMPLETED: IV SITE IS FREE FROM REDNESS OR EDEMA. HR IS REG,PULSES ARE STRONG X4, ABD IS SOFT WITH ACTIVE BS. BREATH SOUNDS ARE CLER, BILATERLLY. NO C/O SOB. CONTINUE TO OSEBRVE AND MONITOR.
--- NOTE | 2020-02-02 11:15 | NUR ---
PT WAS SITTING IN THE SHOWER. AND THEN BECAME WEAK. LOWERING HIS HEAD. ENCOURAGED TO SIT UP AND FOCUS ON STANDING UP TO GET BACK TO BED. BECAME A LITTLE WEAKER , MONOMER RECOVERY OPERATOR AND MYSELF PLACED PT IN WC AND ASSISTED BACK TO BED. AND STARTED IV FLUIDS. PT IS RESTING IN BED .
--- NOTE | 2020-02-02 11:30 | NUR ---
DR TOLBERT IN TO VISIT WITH PT/ WILL REHYDRATE PT. CONTINUE TO OBSERVE AND MONITOR.
--- NOTE | 2020-02-02 12:45 | NUR ---
PT IS RELAXING IN BED WITH NO DISTRSS NOTED.IV SITE IS FREE FROM REDNESS OR EDEMA
[2020-02-02 16:03] VITALS: BP 125/61
--- NOTE | 2020-02-02 16:45 | NUR ---
PT IS RESTING IN BED WITH NO DISTRESS NOTED. IV SITE IS FREE FROM REDNESS OR EDEMA.
[2020-02-02 19:15] VITALS: BP 149/64
[2020-02-03 04:00] VITALS: BP 144/61
[2020-02-03 05:16] LABS: HEMOGLOBIN 10.1 g/dl (14.0-18.0); IMMATURE GRANULOCYTES 3.9 % (0.0-5.0); MEAN CORPUSCULAR HGB 29.6 pG CALC (26.0-32.0); MEAN CORPUSCULAR HGB CONC 33.7 g/dL CAL (32.0-36.0); NEUT# 9.53 thou/uL (1.82-7.42); RED BLOOD COUNT 3.41 mill/uL (4.70-6.10); RED CELL DISTRI WIDTH 13.7 % (11.5-15.5)
[2020-02-03 05:46] LABS: CREATININE 2.1 mg/dL (0.7-1.3); POTASSIUM 4.1 mmol/l (3.5-5.1)
--- NOTE | 2020-02-03 07:15 | NUR ---
REPORT RECEIVED FROM LEN SOLOMON.
[2020-02-03 07:55] VITALS: BP 157/67
--- NOTE | 2020-02-03 07:55 | NUR ---
PT RESTING AT BEDSIDE,A&O X3;VS OBTAINED AND ASSESSMENT COMPLETED;PT DENIES ANY CURRENT PAIN OR DISCOMFORTS,PAIN SCALE AND REPORTING EDUCATED;PT EXPRESSES EAGERNESS TO GO HOME, REASSURED PATIENT;RESPIRATIONS SHALLOW ON RA, UPON ASSESSMENT PT O2 SATS 77% WHILE ON RA.WRITTER APPLIED OXYGEN @ 2L VIA NC AND ENCOURAGED PT TO RE-POSITION TO PRONE POSITION IN BED;O2 SATS REMAINED IN 80'S WHILE ON 2L VIA NC;INCREASED OXYGEN TO 4L AND O2 SATS INCREASED TO 92%;EDUCATED PT ON THE BENEFITS OF REMAINS PRONE TO INCREASE OXYGEN;NON-PRODUCTIVE COUGH NOTED;ABDOMEN SOFT ON PALPATION AND ACTIVE IN ALL 4 QUADRANTS;STRONG PEDAL PULSES;SKIN INTACT;#20G TO RAC INFUSING NS @ 100ML/HR,SITE APPEARS HEALTHY;ACCUCHECK 210, PT COVERED WITH SLIDING SCALE NOVOLOG PER ORDER;PT REMAINS IN AIR/CONTACT PRECAUTIONS AT THIS TIME DUE TO COVID19 DX;PT DENIES ANY ADDITIONAL NEEDS AND IS ENCOURAGED TO CALL FOR ASSISTANCE IF NEEDED;CALL LIGHT IN REACH;WILL CONTINUE TO MONITOR
--- NOTE | 2020-02-03 08:15 | NUR ---
AND CARLA ANRP NOTIFIED OF INCREASE IN OXYGEN TO 4L VIA IL.NO NEW ORDERS RECEIVED AT THIS TIME.
--- NOTE | 2020-02-03 11:30 | NUR ---
PT RESTING IN PRONE POSIITON;RESPIRATIONS REMAIN EVEN AND UNLABORED ON O2 @ 4L VIA NC, O2 SAT 91% AT THIS TIME;PT REPORTS NAUSEA AND REQUESTS PRN ANTIEMETIC, PT EDUCATED ON MEDICATION SCHEDULE AND VERBALIZES UNDERSTANDING;PT DENIES ANY ADDITIONAL PAIN OR NEEDS;IV FLUIDS CONTINUE TO INFUSE WITH EASE PER ORDER;ACCUCHECK 189, PT COVERED WITH SLIDING SCALE NOVOLOG;FRESH WATER PEROVIDE PER REQUEST;PT DENIES ANY ADDITIONAL NEEDS;ENCOURAGED TO CALL FOR ASSISTANCE IF NEEDED;CALL LIGHT IN REACH;WILL CONTINUE TO MONITOR
--- NOTE | 2020-02-03 15:45 | NUR ---
PT RESTING IN SEMI FOWLERS POSITION;RESPIRATIONS SHALLOW ON O2 @ 4L VIA NC, O2 SATS CHECKED RESULTING IN 82%. PT AGAIN, RE-EDUCATED ON THE IMPORTANCE OF REMAINING PRONE WHILE IN BED;PT RE-POSITIONED AND O2 SATS BE TO 92% ON 4L VIA NC;PT DENIES ANY CURRENT PAIN OR NEEDS;IV FLUIDS CONTINUE TO INFUSE WITH EASE PER ORDER;ALL SAFETY PRECAUTIONS IN PLACE WITH BED IN THE LOWEST POSITION AND CALL LIGHT IN REACH;WILL CONTINUE TO MONITOR
[2020-02-03 16:08] VITALS: BP 145/67
--- NOTE | 2020-02-03 17:21 | NUR ---
PT RESTING IN PRONE POSITION WITH O2 @ 4L VIA NC, O2 SATS 97% AT THIS TIME.CALL LIGHT IN REACH;WILL CONTINUE TO MONITOR
[2020-02-03 19:00] VITALS: BP 155/73
--- NOTE | 2020-02-03 19:10 | NUR ---
REPORT RECEIVED FROM ANIVAL LACKEY. PT RESTING IN BED ON LEFT SIDE. ALERT AND ORIENTED. RESPIRATIONS EVEN AND UNLABORED, LUNGS SOUND DIMINISHED. PEDAL PULSES STRONG. PT DENIES ANY PAIN OR DISCOMFORT AT THIS TIME. SAFETY PRECAUTIONS IN PLACE. WILL CONTINUE TO MONITOR.
--- NOTE | 2020-02-03 23:55 | NUR ---
PT ENCOURAGED TO LAY IN THE PRONE POSITION, ASSISTED PT WITH PUTTING O2 VIA NC BACK ON. O2 SAT 80 ON RA; WITH O2 @ 4L VIA NC, O2 SAT 92. WILL CONTINUE TO MONITOR.
[2020-02-04] VITALS (22 sets, daily range): BP systolic 117–189; BP diastolic 57–92
--- NOTE | 2020-02-04 03:30 | NUR ---
PT RESTING IN BED IN THE PRONE POSITION, O2 @ 4L VIA NC. O2 SAT 79 CAME UP 89. PT NOT MAINTAINING O2 SAT. MD TO BE NOTIFIED.
--- NOTE | 2020-02-04 03:58 | NUR ---
MD NOTIFIED OF PT O2 SAT, ORDERS TO TRANSFER PT TO ICU OBTAINED.
--- NOTE | 2020-02-04 04:10 | NUR ---
PT TRANFERED TO ICU BED 8
--- NOTE | 2020-02-04 04:25 | NUR ---
PATIENT ARRIVES VIA BED ACCOMPANIED BY RN AND ATTIC BLOWER, PT ON 4 L/MIN NC. PT SWITCHED TO HIGH FLOW NC AT 4 L/MIN AND SLOWLY TITRATED, PT NOW AT 10 L/MIN HIGH FLOW NC, O2 SAT NOW IS 93%-94%. PT DOES BECOME SOB WITH EXERTION, RAPID AND SHALLOW BREATHING OBSERVED. PT EDUCATED ON POC NOW AND PRONE POSITION, PURSED LIP BREATHING, PT UNDESTANDS AND AGREES. NOW LAYS IN PRONE POSITION. PT IS ALERT AND ORIENTED X4. NURSING ASSESSMENT PERFORMED. RAC 20 G IV IS INTACT AND NS INSFUSING AT 75 ML/HR. BP IS 170'S SYSTOLIC, WILL CONTINUE TO MONITOR. SR ON SWEDGER, HR 80'S. AFEBRILE. PT DOES REQUEST DIET GINI LE, NO GINI SATINDER, PROVIDED A DIET LEMON PILOT STATION, ICED WATER ALSO PROVIDED. PT DOES ARRIVE WITH ALL OF HIS BELONGINGS, PHONE AT BEDSIDE TABLE. CALL LIGHT WITHIN REACH.
--- NOTE | 2020-02-04 05:08 | NUR ---
PT HAS INTERMITTENT DRY COUGH. PT CONTINUES TO LAY IN PRONE POSITION, O2 SAT 98%, CONTINUES TO BE ON HIGH FLOW NC AT 10 L/MIN. DOES DESAT WITH EXERTION, OR SITS ON BEDSIDE TO USE URINAL. CALL LIGHT WITHIN REACH.
--- NOTE | 2020-02-04 05:16 | NUR ---
PT HOURLY SALES STAFF LIGHT, REQUESTS URINAL. URINAL PROVIDED. VOIDS 100 ML. URINE YELLOW/CLEAR. PT LAYS PRONE.
[2020-02-04 05:53] LABS: HEMATOCRIT 33.1 % (39.0-50.0); HEMOGLOBIN 10.8 g/dl (14.0-18.0); MEAN CELL VOLUME 89.2 fL CALC (80.0-100.0); MEAN CORPUSCULAR HGB 29.1 pG CALC (26.0-32.0); MEAN CORPUSCULAR HGB CONC 32.6 g/dL CAL (32.0-36.0); NEUT# 9.97 thou/uL (1.82-7.42); RED BLOOD COUNT 3.71 mill/uL (4.70-6.10); RED CELL DISTRI WIDTH 14.1 % (11.5-15.5)
--- NOTE | 2020-02-04 06:15 | NUR ---
CANCELLED 2VIEW CXR DUE TO PATIENT WILL BE UNABLE TO PERFORM THE TEST THIS MORNING DUE TO PATIENT IS ON HIGH FLOW NC AT 10 L/MIN AND BECOMES SOB WITH EXERTION, CANNOT TOLERATE EXERTION. PORTABLE CXR ORDERED.
[2020-02-04 06:24] LABS: ALBUMIN 2.8 g/dL (3.2-5.0); BILIRUBIN, TOTAL 0.4 mg/dL (0.0-1.4); C-REACTIVE PROTEIN 4.4 mg/dL (0-0.9); CREATININE 1.9 mg/dL (0.7-1.3); POTASSIUM 3.9 mmol/l (3.5-5.1); TOTAL PROTEIN 5.7 g/dL (6.3-8.2)
--- NOTE | 2020-02-04 06:55 | NUR ---
RECVD REPORT FROM LEN WHEELER @START OF SHIFT
--- NOTE | 2020-02-04 07:45 | NUR ---
PT IN PRONE POSITION BUT VERY ANXIOUS. O2 IN HIGH 80'S. PT ENCOURAGED TO RELAX.
--- NOTE | 2020-02-04 10:49 | NUR ---
#20 RAC NOT FLUSHING. ATTEMPTING TO ESTABLISH ANOTHER IV SITE USING VEIN FINDER UNSUCCESSFUL. WILL ASK OTHER STAFF TO TRY.
--- NOTE | 2020-02-04 11:06 | NUR ---
HOUSE SUP @BEDSIDE TO ATTEMPT TO ESTABLISH IV ACCESS.
--- NOTE | 2020-02-04 11:45 | NUR ---
#22 LAC ESTABLISHED, REINFORCED WITH COBAN. PT RETURNED TO PRONE POSITION.
--- NOTE | 2020-02-04 13:08 | NUR ---
RBVTO FOR PICC LINE; ORDER PLACED. PER RADIOLOGY, HOLD PLAVIX x3 DAYS BEFORE PLACEMENT. ORDER FAXED TO PHARMACY. PER DR PATTERSON, GET PICC LINE FAD[facility]O.
--- NOTE | 2020-02-04 14:54 | NUR ---
PTS O2 86% LAYING ON SIDE. PT REMINDED TO LAY IN PRONE MUCH POSSIBLE. PT AGREED BUT REMAINS ON HIS SIDE.
--- NOTE | 2020-02-04 15:29 | NUR ---
@BEDSIDE TO RESET BP, PT REMINDED AGAIN TO REMAIN IN PRONE POSITION. PT CONTINUES TO LAY ON HIS SIDE. O2 IN 80'S. CALLBELL W/IN REACH. WILL CONTINUE TO MONITOR.
--- NOTE | 2020-02-04 16:25 | NUR ---
PT CONTINUES TO NOT PRONE. DISCUSSED INTUBATION WITH PT. PT WANTS TO BE INTUBATED IF NEEDED. DAUGHTER CONTACTED ABOUT PTS NONCOMPLIANCE; DAUGHTER ASKED TO SPEAK TO PT BC PT IS NOT ANSWERING HIS CELLPHONE. 2ND DAUGHTER CALLED FOR UPDATE AND WAS NOTIFIED OF PTS REFUSAL TO COOPERATE WITH POC.
--- NOTE | 2020-02-04 20:25 | NUR ---
THE PATIENT HAS TO BE REMINDED TO LIE ON HIS SIDE. O2 SATS ARE 89%-92% ON HIGH FLOW AT 10 LPM
--- NOTE | 2020-02-04 21:53 | NUR ---
the patient is trying to sleep. his o2 sat goes to 88% on hi flow oxygen
--- NOTE | 2020-02-04 22:28 | NUR ---
The patient will not lie prone.
[2020-02-05] VITALS (15 sets, daily range): BP systolic 124–186; BP diastolic 63–85
--- NOTE | 2020-02-05 00:11 | NUR ---
The patient is sleeping.
--- NOTE | 2020-02-05 01:46 | NUR ---
The patients sat decreases periodilcally to 86%. re-enforce to patient the need to stay prone.
--- NOTE | 2020-02-05 03:18 | NUR ---
The patient is moving on the bed and pulls the wires off. He was instructed to stay prone, he insists on having his head elevated on a pillow.
--- NOTE | 2020-02-05 04:04 | NUR ---
The patient is sleeping, sat 95%.
--- NOTE | 2020-02-05 05:23 | NUR ---
sheets changed, patient given ice chips. Instructed patient to remain prone,
[2020-02-05 05:48] LABS: HEMATOCRIT 31.3 % (39.0-50.0); HEMOGLOBIN 10.3 g/dl (14.0-18.0); MEAN CELL VOLUME 87.7 fL CALC (80.0-100.0); MEAN CORPUSCULAR HGB 28.9 pG CALC (26.0-32.0); MEAN CORPUSCULAR HGB CONC 32.9 g/dL CAL (32.0-36.0); NEUT# 13.4 thou/uL (1.82-7.42); RED BLOOD COUNT 3.57 mill/uL (4.70-6.10)
[2020-02-05 06:24] LABS: CREATININE 1.6 mg/dL (0.7-1.3); POTASSIUM 3.3 mmol/l (3.5-5.1)
[2020-02-05 06:33] LABS: IMMATURE GRANULOCYTES 5.3 % (0.0-5.0)
--- NOTE | 2020-02-05 07:55 | NUR ---
REPORT RECEIVED FROM NIGHT NURSE. PT RESTING IN BED ON LEFT SIDE LEANING BACK AGAINST SIDE RAIL; DISORIENTED WITH SLURRED SPEECH. BLOOD SUGAR AT 0730 34. STAT GLUCOSE OBTAINED AT 34. ORANGE JUICE AND CRACKERS PROVIDED WITH F/U GLUCOSE OF 36. D10 GLUCOSE INFUSION ORDERED AND INFUSING AT THIS TIME.
--- NOTE | 2020-02-05 08:15 | NUR ---
FSBG 185 AFTER D10 INFUSION. PT NOW ORIENTED X 3, BUT IS DROWSY. BREAKFAST DELVIERED AND PT ENCOURAGED TO EAT; REFUSING TO EAT STATING THAT HE HAS HAD ENOUGH. RECHECK ACCU CHECK 195. PT AGAIN ENCOURAGED PRONE POSITION. 97% ON 10L OF HIGH FLOW OXYGEN. RESPIRATIONS EVEN AND UNLABORED AT 20 RESP PER MINUTE.
--- NOTE | 2020-02-05 08:30 | NUR ---
DR. PATTERSON ON UNIT AND NOTIFIED OF LOW GLUCOSE; NEW ORDERS TO DECREASE LEVEMIR AT HS FROM 40 TO 20 UNITS.
--- NOTE | 2020-02-05 09:10 | NUR ---
BLOOD PRESSURE ELEVATED AT 177/85 HR 70; SCHEDULED MEDICATIONS GIVEN AND WILL REASSESS. LOVENOX HELD FOR PLANNED PICC LINE INSERTION.
--- NOTE | 2020-02-05 10:17 | NUR ---
BP IMPROVED; NOW 138/68 HR 65. PT RESTING IN BED ON LEFT SIDE CURLED UP WITH C/O FEELING VERY COLD; PT SHIVERING. AFEBRILE 97.1. WARM BLANKET PROVIDED. SPO2 85-86% AT THIS TIME; ENCOURAGED TO REST PRONE; 95% AFTER REPOSITIONING.
--- NOTE | 2020-02-05 11:23 | NUR ---
PT OFF UNIT VIA WHEELCHAIR FOR PICC LINE AT 1035; RETURNED TO ROOM AT 1111 IN STABLE CONDITION. REMAINED ON OXYGEN 10L DURING TRANSPORT. TOLERATED PROCEDURE WELL. RETURNED WITH DOUBLE LUMEN RIGHT UPPER ARM PICC. LINENS CHANGED. ACCU CHECK 163. LINENS CHANGED AND PT NOW RESTING IN BED SEMI FOWLERS. 85-87% SPO2. ENCOURAGED PRONE POSITION.
--- NOTE | 2020-02-05 12:15 | NUR ---
2 FAMILY MEMBERS UPDATED VIA TELEPHONE.
--- NOTE | 2020-02-05 13:08 | NUR ---
SPO2 DECREASING INTO THE HIGH 70'S WHILE PATIENT IS SEMI FOWLERS; RT AT BEDSIDE TO ENCOURAGE PRONE POSITION.
--- NOTE | 2020-02-05 13:18 | NUR ---
OXYGEN TITRATED UP TO 12L VIA HIGH FLOW NC. SPO2 CURRENTLY 92%. WILL CONTINUE TO MONITOR.
--- NOTE | 2020-02-05 17:00 | NUR ---
ACCU CHECK 208; PT ENCOURAGED TO EAT. STATES THAT HE CANT EAT BECAUSE HE DOESNT HAVE FIXADENT FOR HIS DENTURES. OFFERED TO HAVE FAMILY BRING FIXADENT OR CHANGE DIET TO SOFT; PT ONLY REQUESTS ORANGE JUICE. PT STATES THAT HE HAS PURPOSELY NOT BEEN ANSWERING HIS FAMILY STATING THAT THEY MAKE HIM FEEL WORSE. INFORMED PT THAT NURSING HAS UPDATED HIS FAMILY AND GAVE PT UPDATE ON WIFES CONDITION; PT'S MOOD SEEMS BETTER WITH POSITIVE NEWS. THEN PT REQUESTED ORANGES STATING THAT HE WOULD EAT HIS DINNER LONG IT CAME WITH ORANGES; ATE 50%.
--- NOTE | 2020-02-05 19:15 | NUR ---
awake. lying on lt side. o2 cont @ 12 l/m high flow per nc. denies acute distress. fpga design engineer shows sinus rhythm pvcs hr 74. #22 rac saline lock. picc line in place grayson saline lock. voids per urinal. fall precautions cont. spoke to pt @ length regarding deterioration in condition & possibility of vent. encouraged pt to call his family. pt verbalized understanding.
--- NOTE | 2020-02-05 20:00 | NUR ---
pt spilled water pitcher in bed. while changing linen pts o2 sat dropped to 80%. o2 increased to 15 l/m high flow without effect. nasal cannula changed to nrb. sao2 increased to 92-94%. spoke to pt again @ length regarding condition. pt asked "when i'm on the machine will i know what's going on? if i will i know it?" instructed pt about sedation. pt verbalized understanding.
--- NOTE | 2020-02-05 22:00 | NUR ---
lying in prone position. sao2 92%. nad.
[2020-02-06] VITALS (78 sets, daily range): BP systolic 75–245; BP diastolic 47–164
--- NOTE | 2020-02-06 00:01 | NUR ---
eyes closed. nad. remains in prone position. 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
--- NOTE | 2020-02-06 02:00 | NUR ---
resting quietly. remains in prone position. nad. nrb cont.
--- NOTE | 2020-02-06 04:20 | NUR ---
blood drawn & sent to lab.
[2020-02-06 05:44] LABS: ALBUMIN 2.4 g/dL (3.2-5.0); CREATININE 1.6 mg/dL (0.7-1.3); POTASSIUM 3.7 mmol/l (3.5-5.1)
--- NOTE | 2020-02-06 06:45 | NUR ---
REPORT RECEIVED FROM BEENA LACKEY. CARE ASSUMED.
--- NOTE | 2020-02-06 07:20 | NUR ---
PT RESTING IN BED ON SIDE. RESP ARE SOMEWHAT LABORED. PT BECOMES EASILY DISTRESSED. PT IS ALERT AND ORIENTED X3. EXPLAINED TO PATIENT THAT HE NEEDS TO LAY PRONE. PT STATES THAT HE CANNOT LAY PRONE AND HAS TRIED. EXPLAINED THAT IF HE CONTINUES TO DESAT HE WILL REQUIRE INTUBATION. PT STATES THEN INTUBATE. IV PATENT X2. CALL LIGHT IN REACH. WILL CONTINUE TO MONITOR.
--- NOTE | 2020-02-06 07:45 | NUR ---
DR PATTERSON NOTIFIED OF O2 SATS 70S. HE WILL BE IN TO SEE PATIENT SOON AND EVALUATE.
--- NOTE | 2020-02-06 08:15 | NUR ---
DR PATTERSON AT BEDSIDE. ANESTHESIA NOTIFIED OF NEED FOR INTUBATION.
--- NOTE | 2020-02-06 08:25 | NUR ---
ANESTHESIA AND RT AND THIS NURSE AT BEDSIDE FOR INTUBATION FOLLOWS ANESTHESIA SEDATED AND PARALYZED PATIENT PER ANESTHESIA NOTE. 0835- PT INTUBATED WITH 8.0 ET TUBE 23 @ LIP POSITIVE COLOR CHANGE ON CO2 INDICATOR. VERIFIED WITH AUSCULTATION WELL. 0840- PROPOFOL DRIP STARTED. 0845- OG TUBE PLACED VERIFIED WITH AUSCULTATION. PLACED TO LIS 0850- WATSON PLACED USING STERILE TECHNIQUE. IMMEADIATE RETURN OF CLEAR YELLOW URINE. WATSON SECURED TO CATH SMITH. 0900- BILATERAL WRIST RESTRAINTS PLACE ON PATIENT FOR SAFETY 0910- RADIOLOGY AT BEDSIDE TO VERFIY TUBE PLACEMENT.
--- NOTE | 2020-02-06 08:30 | NUR ---
THIS NURSE AND Haider ESQUIVEL AT PATIENT BEDSIDE AND PT GAVE VERBAL CONSENT FOR INTUABTION AND TRANSFER TO [facility].
--- NOTE | 2020-02-06 09:50 | NUR ---
RT AT BEDSIDE FOR ABG
--- NOTE | 2020-02-06 10:04 | NUR ---
DR PATTERSON NOTIFIED OF ABG RESULTS.
--- NOTE | 2020-02-06 10:39 | NUR ---
NEW ORDERS RECEIVED FROM DR PATTERSON FOR PRN LABETOLOL AND PRN FENTANYL.
--- NOTE | 2020-02-06 10:48 | NUR ---
DAUGHTER ESCOBAR UPDATED ON INTUBATION AND NECESSITY OF TRANSFER. SHE VERBALIZED UNDERSTANDING.
--- NOTE | 2020-02-06 11:00 | NUR ---
RT AT BEDSIDE DUE TO O2 SATS 88% ON MONITOR. VENT ADJUSTMENTS MADE.
--- NOTE | 2020-02-06 11:30 | NUR ---
O2 SATS 87-89% SUSTAINED. RT ASKED TO COME OVER FOR EVALUATION. REPEAT ABG OBTAINED. WILL CONTINUE TO MONITOR.
--- NOTE | 2020-02-06 11:49 | NUR ---
call placed to [facility] transfer center; spoke with Charmaine; transfer information provided; facesheet/ covid results faxed; awaiting return call
--- NOTE | 2020-02-06 12:00 | NUR ---
DR PATTERSON NOTIFIED OF DECREASED O2. ORDERS RECEIVED TO PRONE PATINET. RT NOTIFIED. AND CALLED TO GET ADDITIONAL STAFF RESOURCES.
--- NOTE | 2020-02-06 12:17 | NUR ---
PT PRONED AT THIS TIME PER DR PATTERSON'S ORDERS.
--- NOTE | 2020-02-06 12:33 | NUR ---
DR PATTERSON NOTIFIED OF CONTINUED HYPOTENSION. ORDERS RECEIVED FOR A LEVOPHED DRIP. ORDERS FAXED TO PHARMACY.
--- NOTE | 2020-02-06 12:55 | NUR ---
LEVOPHED DRIP STARTED AT THIS TIME PER TITRATION CHARTING.
--- NOTE | 2020-02-06 13:09 | NUR ---
[facility] transport [place] called per selling underwriter; information provided; ETA 15 min
--- NOTE | 2020-02-06 13:13 | NUR ---
PT RESTING IN BED PRONE AND INTUBATED AND SEDATED AT THIS TIME. IV PATENT X2. VSS ON MONITOR AT THIS TIME. WILL CONTINUE TO CLOSELY MONITOR.
--- NOTE | 2020-02-06 13:45 | NUR ---
[facility] ON UNIT. REPORT PROVIDED. THIS SOUND TESTER AND RT AT BEDSIDE WITH [facility]. TRANSFERRED PT TO STRETCHER PLACED ON [facility] VENTILATOR. PT DID NOT TOLERATE VENTILATOR. PT IMMEADIATELY DESATTED. PT PLACED BAKC ON [facility] VENT AND TRANSFERRED BACK TO HOSPITAL BED. DR PATTERSON NOTIFIED.
--- NOTE | 2020-02-06 13:55 | NUR ---
[facility] transport center [facility] called per film writer; transport team on unit; ETA provided
--- NOTE | 2020-02-06 14:15 | NUR ---
received call from [facility] in regards to report; Noah informed of delay in ETA: will keep transfer center updated;
--- NOTE | 2020-02-06 14:18 | NUR ---
Dr Marshall called per this typewriter ribbon winder; orders received to air lift is needed;
--- NOTE | 2020-02-06 14:22 | NUR ---
[facility] called per speech writer; information provided; air transport grounded due to weather
--- NOTE | 2020-02-06 14:30 | NUR ---
DR PATTERSON NOTIFIED THAT UNABLE TO FLY DUE TO WEATHER.
--- NOTE | 2020-02-06 14:43 | NUR ---
MANAGEMENT NOTIFIED OF NEED TO FLY DUE TO VENT ISSUES AND NOW UNABLE TO FLY DUE TO WEATHER. RT WILL RIDE WITH [employer] TO MANAGE VENT.
--- NOTE | 2020-02-06 15:00 | NUR ---
PT TRANSFERRED TO [facility] BY THIS NURSE RT AND AND [facility]. ASSISTED [facility] TO AMBULANCE. [facility] BAGGED PT FROM ROOM TO AMBULANCE THEN PATIENT PLACED DM VENT WITH [facility] RT STAFF IN AMBULANCE TO ASSIST IN MANAGING VENT. PT IN STABLE CONDITION WITH STABLE VS AT THIS TIME.
--- NOTE | 2020-02-06 15:20 | NUR ---
GILBERT KAHN AT [facility] GAVE NURSE TO NURSE TO REPORT.
--- NOTE | 2020-02-06 15:29 | NUR ---
UPDATED DAUGHTER EVELYN THAT PATIENT HAD BEEN TRANSFERRED
--- NOTE | 2020-02-06 15:31 | NUR ---
UPDATED [facility] TRANSFER CENTER WITH ETA TIME.
--- NOTE | 2020-02-07 08:16 | NUR ---
PT note for 02/06/20 Attempted to see patient for PT eval but they had already DC`
== END 2020-02-06 15:00 | disposition short-term general hospital (02) | DRG 208 ==
LOC: ED 16:19 → ED-I 17:37 → ED 17:37 → ED-I 18:10 → ED 18:39 → MS2 19:40 → ICU 19:40 → MS2 02-01 11:05 → ICU 02-04 04:05
PROVIDERS: Internal Medicine; Internal Medicine Nephrology; Nurse Practitioner; Student in an Organized Health Care Education/Training Program; ADMIT Internal Medicine; ATTEND Internal Medicine
PROC: 02HV33Z Insertion of Infusion Device into Superior Vena Cava, Percutaneous Approach (ICD-10-PCS; principal; 2020-02-05)
PROC: B518ZZA Fluoroscopy of Superior Vena Cava, Guidance (ICD-10-PCS; 2020-02-05)
PROC: 5A1935Z Respiratory Ventilation, Less than 24 Consecutive Hours (ICD-10-PCS; 2020-02-06)
PROC: 0BH17EZ Insertion of Endotracheal Airway into Trachea, Via Natural or Artificial Opening (ICD-10-PCS; 2020-02-06)
DX: U07.1 COVID-19 (principal); J12.89 Other viral pneumonia; J96.01 Acute respiratory failure with hypoxia; N17.9 Acute kidney failure, unspecified; E87.1 Hypo-osmolality and hyponatremia; E87.2 Acidosis; N25.81 Secondary hyperparathyroidism of renal origin; I12.9 Hypertensive chronic kidney disease with stage 1 through stage 4 chronic kidney disease, or unspecified chronic kidney disease; E11.22 Type 2 diabetes mellitus with diabetic chronic kidney disease; N18.3 Chronic kidney disease, stage 3 (moderate); I25.10 Atherosclerotic heart disease of native coronary artery without angina pectoris; E11.40 Type 2 diabetes mellitus with diabetic neuropathy, unspecified; E11.649 Type 2 diabetes mellitus with hypoglycemia without coma; E87.6 Hypokalemia; D63.1 Anemia in chronic kidney disease; E86.9 Volume depletion, unspecified; E78.5 Hyperlipidemia, unspecified; I65.23 Occlusion and stenosis of bilateral carotid arteries; N40.0 Benign prostatic hyperplasia without lower urinary tract symptoms; Z95.1 Presence of aortocoronary bypass graft; Z79.4 Long term (current) use of insulin; Z87.891 Personal history of nicotine dependence; Z86.73 Personal history of transient ischemic attack (TIA), and cerebral infarction without residual deficits
CPT/HCPCS: J1650; J1756; Q5106 EC